=== PATIENT | male | born 2000 | race Caucasian/White ===

== ENCOUNTER 2023-09-03 23:35 | Observation (INO) | payer OTHER ==
[2023-09-04] MEDS ORDERED: Morphine 4 MG/ML VIAL ONE (01:43)
[2023-09-04] MEDS ORDERED: Ondansetron PF 4 MG/2 ML Vial ONE ×2 (01:43→17:28)
[2023-09-04] MEDS ORDERED: Ketamine In 0.9 % NaCl 50 MG/5 ML SYRINGE ONE ×2 (02:00→17:16)
[2023-09-04] MEDS ORDERED: Morphine 4 MG/ML VIAL SLOW IVP PRN (03:38)
[2023-09-04] MEDS ORDERED: Ondansetron ODT 4 MG TAB SL PRN (03:45)
[2023-09-04] MEDS ORDERED: Ondansetron PF 4 MG/2 ML Vial IVP PRN ×2 (03:45→06:01)
[2023-09-04 04:01] LABS: #Basophils 0.1 thou/uL (0.0-0.2); #Eosinphils 0.1 thou/uL (0.0-0.7); #Monocytes 0.9 thou/uL (0.11-0.59); #Neutrophils 14.9 thou/uL (1.40-6.50); %Basophils 0.5 % (0.0-1.0); %Eosinophils 0.4 % (0.0-10.0); %Lymphocytes 8.7 % (21.0-51.0); %Monocytes 5.3 % (0.0-10.0); %Neutrophils 84.7 % (42.0-75.0); Hematocrit 44.5 % (42.0-52.0); Mean Corpuscular HGB CONC 33.7 g/dL (32.0-36.0); Mean Corpuscular Hemoglobin 31.1 pg (27.0-31.0); Mean Corpuscular Volume 92.1 fl (78.0-98.0); Mean Platelet Volume 9.2 fL (7.4-10.4); Platelet Count 333 10x3/uL (130-400); RBC Distribution Width 12.2 % (11.5-14.5); Red Blood Cell (RBC) Count 4.83 mill/uL (4.70-6.10); White Blood Cell (WBC) Count 17.5 10x3/uL (4.8-10.8)
[2023-09-04 04:21] VITALS: BMI 20.8
[2023-09-04 04:28] LABS: ALT (SGPT) 10 U/L (8-55); AST (SGOT) 16 U/L (5-34); Albumin 4.4 g/dL (3.5-5.0); Alkaline Phosphatase 59 U/L (40-110); Anion Gap 17 mmol/L (10-20); BUN (Urea Nitrogen) 19 mg/dL (8.9-20.6); Bilirubin, Total 0.2 mg/dL (0.2-1.2); Calc. Creatinine Clearance 107 mL/min (70-130); Calcium 9.3 mg/dL (7.8-10.44); Carbon Dioxide 17 mmol/L (22-29); Chloride 108 mmol/L (98-107); Estimated GFR 111; Globulin 2.6 g/dL (2.4-3.5); Glucose 100 mg/dL (70-105); Potassium 3.9 mmol/L (3.5-5.1); Sodium 138 mmol/L (136-145)
[2023-09-04] MEDS: Sodium Chloride 0.9% 1,000 ML IV SCH (05:01)
[2023-09-04] MEDS ORDERED: Dextrose 50% Abboject 50 ML SYRINGE SLOW IVP PRN (06:01)
[2023-09-04] MEDS ORDERED: Dextrose 5% in Water 1,000 ML IV PRN (06:01)
[2023-09-04] MEDS ORDERED: traMADol HCl 50 MG TAB PO PRN (06:01)
[2023-09-04] MEDS ORDERED: TETANUS, DIPHTHERIA TOX,ADULT (TDVAX) 0.5 ML VIAL IM ONE (06:01)
[2023-09-04] MEDS ORDERED: Glucagon 1 MG/ML KIT IM PRN (06:01)
[2023-09-04] MEDS ORDERED: CEFAZOLIN 2 GM in Sodium Chloride 0.9% 100 ML IVPB SCH ×2 (07:45→22:00)
[2023-09-04] MEDS ORDERED: Morphine 2 MG/ML VIAL SLOW IVP PRN (08:23)
[2023-09-04] MEDS: traMADol HCl 50 MG TAB PO SCH (08:35)
[2023-09-04] MEDS: Gabapentin 300 MG CAP PO SCH (08:35)
[2023-09-04] MEDS: Acetaminophen 500 MG TAB PO SCH (08:36)
[2023-09-04] MEDS: Ibuprofen 200 MG TAB PO SCH (10:21)
[2023-09-04] MEDS ORDERED: Midazolam HCl 2 mg/2 ml Vial ONE ×2 (16:37→17:16)
[2023-09-04] MEDS ORDERED: Lidocaine 1% PF 5 ML VIAL ONE (17:16)
[2023-09-04] MEDS ORDERED: PROPOFOL 20 ML ONE (17:16)
[2023-09-04] MEDS ORDERED: fentaNYL PF 100 MCG/2 ML SYRINGE ONE (17:16)
[2023-09-04] MEDS ORDERED: CEFAZOLIN 2 GM VIAL ONE (17:20)
[2023-09-04] MEDS ORDERED: Sodium Chloride 0.9% 100 ML ONE (17:20)
[2023-09-04] MEDS ORDERED: HYDROmorphone 2 MG/ML VIAL SLOW IVP PRN (17:21)
[2023-09-04] MEDS ORDERED: Morphine Sulfate 2 MG/ML SYRINGE SLOW IVP PRN (17:21)
[2023-09-04] MEDS ORDERED: Meperidine HCl/PF 25 MG/ML VIAL SLOW IVP PRN (17:21)
[2023-09-04] MEDS ORDERED: Ondansetron HCl/PF 4 MG/2 ML Vial IVP PRN (17:21)
[2023-09-04] MEDS ORDERED: Promethazine HCl 25 MG/ML VIAL IM PRN (17:21)
[2023-09-04] MEDS ORDERED: Meperidine HCl/PF 25 MG (1 mL) VIAL ONE (17:23)
[2023-09-04] MEDS ORDERED: Dexamethasone 20 MG/5 ML VIAL ONE (17:28)
[2023-09-04] MEDS ORDERED: Metoclopramide HCl 10 MG (2 mL) VIAL ONE (17:28)
[2023-09-04] MEDS ORDERED: Ketorolac Tromethamine 30 MG (1 mL) VIAL ONE (17:28)
[2023-09-04] MEDS ORDERED: fentaNYL 50 mcg/mL 1 mL Vial ONE (19:05)
[2023-09-04 22:37] VITALS: BP 148/91; TEMP 97.8
== END 2023-09-04 22:25 | disposition home or self-care (01) ==
LOC: ERS 23:35 → SJJU 09-04 03:30
PROVIDERS: ADMIT Specialist; ATTEND Specialist
PROC: 0PSJ04Z Reposition Left Radius with Internal Fixation Device, Open Approach (ICD-10-PCS; principal; 2023-09-04)
DX: S52.502A Unspecified fracture of the lower end of left radius, initial encounter for closed fracture (principal); W19.XXXA Unspecified fall, initial encounter; Z79.899 Other long term (current) drug therapy
CPT/HCPCS: 25605; 36415; 80053; 85025; 93005; 96361; 96374; 96375; 99156; C1713; G0378; J1100; J1885; J2175; J2250; J2270; J2405; J2704; J2765; J3010; J3490; J7050